=== PATIENT | male | born 2000 | race Caucasian/White ===

== ENCOUNTER 2019-09-22 14:25 | Emergency (ER) | payer OTHER ==
[~2019-09-22] VITALS: Ht 183 cm; Wt 136.0 kg
[2019-09-22] MEDS ORDERED: morphine INJ 10 MG/ML 1ML (SYR OR VIAL) IVP STA (14:42)
[2019-09-22] MEDS ORDERED: ONDANSETRON 4 MG/2 ML (SDV) Z0FRAN IVP ONE (14:45)
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
[2019-09-22 15:13] LABS: WHITE BLOOD COUNT 9.5 10^3/uL (4.3-11.0)
[2019-09-22 15:14] LABS: BASOPHILS % (AUTO) 0 % (0-10); EOSINOPHILS # (AUTO) 0.2 10^3/uL (0.0-0.3); EOSINOPHILS % (AUTO) 2 % (0-10); HEMATOCRIT 44 % (40-54); HEMOGLOBIN 15.5 G/DL (13.3-17.7); LYMPHOCYTES # (AUTO) 2.2 X 10^3 (1.0-4.0); LYMPHOCYTES % (AUTO) 23 % (12-44); MEAN CORPUSCULAR HEMOGLOBIN 30 PG (25-34); MEAN CORPUSCULAR HGB CONC 35 G/DL (32-36); MEAN CORPUSCULAR VOLUME 85 FL (80-99); MEAN PLATELET VOLUME 9.2 FL (7.4-10.4); MONOCYTES # (AUTO) 0.6 X 10^3 (0.0-1.0); MONOCYTES % (AUTO) 6 % (0-12); NEUTROPHILS # (AUTO) 6.5 X 10^3 (1.8-7.8); NEUTROPHILS % (AUTO) 68 % (42-75); PLATELET COUNT 284 10^3/uL (130-400); RED CELL DISTRIBUTION WIDTH 12.3 % (10.0-14.5)
[2019-09-22 15:24] LABS: BUN/CREATININE RATIO 15; CALCIUM 9.4 MG/DL (8.5-10.1); CARBON DIOXIDE 24 MMOL/L (21-32); CHLORIDE 103 MMOL/L (98-107); CREATININE SERUM 0.95 MG/DL (0.60-1.30); GFR ESTIMATED > 60; GLUCOSE 159 MG/DL (70-105); POTASSIUM 4.1 MMOL/L (3.6-5.0); SODIUM 141 MMOL/L (135-145)
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
--- NOTE | 2019-09-22 15:29 | Diagnostic Imaging Report ---
INDICATION: Foot pain and swelling. EXAMINATION: Three views of the left foot were obtained. FINDINGS: The alignment is normal. There is no fracture or dislocation. Soft tissues are unremarkable. IMPRESSION: No acute fracture or dislocation. Dictated by: Dictated on workstation # [id number]
[2019-09-22 15:30] LABS: BAND NEUTROPHILS 6 %; BASOPHILS % (MANUAL) 1 %; EOSINOPHILS % (MANUAL) 0 %; LYMPHOCYTES % (MANUAL) 43 %; MONOCYTES % (MANUAL) 5 %; NEUTROPHILS % (MANUAL) 45 %; RBC MORPH NORMAL
[2019-09-22] MEDS ORDERED: HYDR-34 PO (15:44)
[2019-09-22 16:10] VITALS: BP 141/74
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
== END 2019-09-22 16:10 | disposition home or self-care (01) ==
LOC: ER FS 14:27
DX: S90.32XA Contusion of left foot, initial encounter (principal); Z88.8 Allergy status to other drugs, medicaments and biological substances; V86.06XA Driver of dirt bike or motor/cross bike injured in traffic accident, initial encounter
CPT/HCPCS: 29515; 36415; 72040; 73630; 80048; 85007; 85027

== ENCOUNTER → 2019-10-08 | Outpatient (CLI) | payer OTHER ==
[~2019-10-08] MED LIST: HYDR-34 PO
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
== END ==
LOC: RAD FS 08:58
PROVIDERS: ATTEND Nurse Practitioner
DX: S90.32XA Contusion of left foot, initial encounter (principal); S97.82XA Crushing injury of left foot, initial encounter; M19.072 Primary osteoarthritis, left ankle and foot
CPT/HCPCS: 73630

== ENCOUNTER → 2019-11-04 | Outpatient (CLI) | payer OTHER | LOC: WOUNDCARE 08:57 | PROVIDERS: ATTEND Surgery | DX: L97.422 Non-pressure chronic ulcer of left heel and midfoot with fat layer exposed (principal); L03.116 Cellulitis of left lower limb; S91.312A Laceration without foreign body, left foot, initial encounter; T65.212A Toxic effect of chewing tobacco, intentional self-harm, initial encounter | CPT/HCPCS: 11042 ==

== ENCOUNTER → 2019-11-12 | Outpatient (CLI) | payer OTHER | LOC: WOUNDCARE 08:03 | PROVIDERS: ATTEND Surgery | DX: L97.422 Non-pressure chronic ulcer of left heel and midfoot with fat layer exposed (principal); L03.116 Cellulitis of left lower limb; S91.312A Laceration without foreign body, left foot, initial encounter; T65.212A Toxic effect of chewing tobacco, intentional self-harm, initial encounter | CPT/HCPCS: 11042 ==

== ENCOUNTER → 2019-11-19 | Outpatient (CLI) | payer OTHER | LOC: WOUNDCARE 08:05 | PROVIDERS: ATTEND Surgery | DX: L97.422 Non-pressure chronic ulcer of left heel and midfoot with fat layer exposed (principal); L03.116 Cellulitis of left lower limb; S91.312A Laceration without foreign body, left foot, initial encounter; T65.212A Toxic effect of chewing tobacco, intentional self-harm, initial encounter | CPT/HCPCS: 11042 ==

== ENCOUNTER → 2019-11-26 | Outpatient (CLI) | payer OTHER | LOC: WOUNDCARE 08:57 | PROVIDERS: ATTEND Surgery | DX: L97.422 Non-pressure chronic ulcer of left heel and midfoot with fat layer exposed (principal); L03.116 Cellulitis of left lower limb; S91.312A Laceration without foreign body, left foot, initial encounter; T65.212A Toxic effect of chewing tobacco, intentional self-harm, initial encounter | CPT/HCPCS: 11042 ==

== ENCOUNTER → 2019-12-03 | Outpatient (CLI) | payer OTHER | LOC: WOUNDCARE 08:13 | PROVIDERS: ATTEND Surgery | DX: L97.529 Non-pressure chronic ulcer of other part of left foot with unspecified severity (principal) | CPT/HCPCS: 11042 ==

== ENCOUNTER → 2019-12-10 | Outpatient (CLI) | payer OTHER | LOC: WOUNDCARE 08:10 | PROVIDERS: ATTEND Surgery | DX: L97.422 Non-pressure chronic ulcer of left heel and midfoot with fat layer exposed (principal); S91.312A Laceration without foreign body, left foot, initial encounter; T65.212A Toxic effect of chewing tobacco, intentional self-harm, initial encounter; F17.210 Nicotine dependence, cigarettes, uncomplicated | CPT/HCPCS: 11042 ==

== ENCOUNTER → 2019-12-17 | Outpatient (CLI) | payer OTHER | LOC: WOUNDCARE 08:14 | PROVIDERS: ATTEND Surgery | DX: L97.422 Non-pressure chronic ulcer of left heel and midfoot with fat layer exposed (principal); S91.312A Laceration without foreign body, left foot, initial encounter; T65.212A Toxic effect of chewing tobacco, intentional self-harm, initial encounter | CPT/HCPCS: 99212 ==